=== PATIENT | male | born 1980 | race Caucasian/White ===

== ENCOUNTER 2017-07-06 14:48 | Emergency (ER) | payer OTHER ==
[~2017-07-06] VITALS: Ht 180.3 cm; Wt 99.8 kg
[~2017-07-06 14:48] MED LIST: IBUP-1050 PO
[2017-07-06 15:01] VITALS: TEMP 36.7; Ht 180.3 cm; Wt 99.8 kg
[2017-07-06] MEDS ORDERED: LIDOCAINE/EPINEPH/TETRACAINE 1 EA SYR ONE (15:09)
--- NOTE | 2017-07-06 15:18 | EMERGENCY ROOM VISIT NOTE ---
ED Visit Note First contact with patient: 15:04 CHIEF COMPLAINT: Facial laceration HISTORY OF PRESENT ILLNESS: This 36-year-old male patient presents to the emergency department, ambulatory, complaining of a laceration to the left forehead. The patient was at work at [employer], when he dropped a clutch from a vehicle he was working on, approximately 1 foot onto his forehead. The incident occurred approximately 30 minutes ago. There was no loss of consciousness, vomiting, or unusual behavior afterwards. Denies neck pain. No headache, nausea, or blurred vision. There is moderate bleeding. The patient rates the pain as throbbing and 3/10. The patient's tetanus shot is up to date. REVIEW OF SYSTEMS: A 6 system review of systems was completed with positives and pertinent negatives listed in the HPI. ALLERGIES: None MEDICATIONS: None PMH: None SOCIAL HISTORY: The patient lives locally with family. He is employed by [employer]. He denies drug, alcohol use. He admits to chewing tobacco. PHYSICAL EXAM: Vital Signs: Reviewed Nurse's notes, vital signs stable. GENERAL : This is a 36-year-old white male, in no acute distress, well-developed, well- nourished. NEURO: The patient is alert and oriented to person place and time. No focal neurological defects. EYES: Pupils are round, equal, and react to light. EOMI. EARS: No hemotympanum. NECK: Supple. No cervical spine tenderness. FACE: No facial bone tenderness or mandibular tenderness. The mouth can open fully. The teeth are well aligned. No loose or chipped teeth. SKIN: There is a 2 cm laceration on the left anterior aspect of the forehead. The edges gape apart with traction. There is no active bleeding and no foreign material in the wound. There are no deep structures present. Capillary refill less than two seconds. Normal sensation to light and sharp touch. EMERGENCY DEPARTMENT COURSE: I examined the patient. Verbal consent was obtained to perform the procedure. LET gel was applied to the wound and allowed to sit for approximately 30 minutes. Using sterile technique the wound was cleansed with Betadine. The area was sterilely draped. The wound was copiously irrigated under pressure with sterile saline. The wound was explored and was as described above. The laceration was repaired using 4 simple interrupted 6-0 nylon sutures with the wound edges being well approximated. The patient tolerated the procedure well. Hemostasis was achieved. The area was cleaned with sterile saline and dressed with bacitracin ointment. The patient was discharged home in good condition. Blood Pressure Screening: Patient was found to have a slightly elevated blood pressure due to circumstances. I do not believe that the patient requires hypertension monitoring. I attest that I have personally reviewed the patient's current medication list. DIFFERENTIAL DIAGNOSIS: laceration, contusion, ICH, concussion/closed head injury, and others DIAGNOSIS: Facial laceration Problem List Medical Problems: (1) Dental abscess Status: Resolved Current/Historical Medications No Active Prescriptions or Reported Meds Allergies Coded Allergies: No Known Allergies (Unverified , NONE, 07/06/17) Vital Signs Date Time Temp Pulse Resp B/P (MAP) Pulse Ox O2 Delivery O2 Flow Rate FiO2 07/06/17 15:02 18 07/06/17 15:01 36.7 80 18 160/91 96 Room Air Medications Administered Medications (Trade) Dose Ordered Sig/Meli Route Start Time Stop Time Status Last Admin Dose Admin Tetracaine/ Epinephrine/ Lidocaine (L.e.t. Gel 4%/ 1:100/0.5%) 1 ea STK-MED ONCE .ROUTE 07/06/17 15:09 07/06/17 15:10 DC 07/06/17 15:14 1 EA Departure Information Impression Primary Impression: Facial laceration Dispostion Home / Self-Care Condition GOOD Prescriptions No Active Prescriptions or Reported Meds Referrals No Doctor, Assigned (PCP) Patient Instructions ED Laceration Facial Sutr Tape, [employer] Additional Instructions You have received 4 sutures on your forehead. These sutures are NOT dissolvable and WILL need to be removed by a health care provider in 4-6 days. You can return to the Emergency Department or contact your Primary Care Provider to have the sutures removed. Proper wound care is essential for adequate wound healing and infection prevention. You can shower and clean the wound with soap and water. Do not scour over the wound, pat dry with a towel. Do not submerse the wound (i.e. bathe or dish wash) until the sutures have been removed. You can use an antibiotic ointment with a dressing over the wound for the next 3-4 days. After this time you may leave the wound dry and open to the air. If crust develops over the wound you can use a Q-tip to apply a 1:1 peroxide:water solution to clean the wound. Look for signs of infection of the wound including: increased pain, swelling, foul discharge, streaking, or increased temperature. If any of these are noticed you should return to the Emergency Department for further assessment and treatment. As with any laceration you may have received nerve damage to the surrounding tissues. This damage may or may not be permanent. You should keep the area covered with sunscreen for the first 6 months to 1 year when at risk for exposure to help minimize scarring. You can also use scar reducing creams or Vitamin E oil to help minimize scarring. For pain control, you can use the following nroj-rhi-mdjpird medicines (if >12 yo): Ibuprofen(Motrin, Advil) may be used for fever or pain. Use 600mg every six hours as needed. Take with food. Avoid using more than 2400mg in a 24 hour period. Do not use 2400mg per day for more than three consecutive days without physician direction. Prolonged inappropriate use can lead to stomach upset or ulcers. (AND/OR) Acetaminophen(Tylenol) may be used for fever or pain. Use 1000mg every six hours as needed. Avoid using more than 3000mg in a 24 hour period. Return to the emergency department if your symptoms worsen despite treatment course outlined above. Problem Qualifiers Primary Impression: Facial laceration Encounter type: initial encounter Qualified Codes: S01.81XA - Laceration without foreign body of other part of head, initial encounter
[2017-07-06 16:17] VITALS: BP 137/89; PULSE 71; O2SAT 97
== END 2017-07-06 16:17 | disposition home or self-care (01) ==
LOC: C.EDB 14:49 → C.EDD 16:17
DX: S01.81XA Laceration without foreign body of other part of head, initial encounter (principal); W20.8XXA Other cause of strike by thrown, projected or falling object, initial encounter; Y99.0 Civilian activity done for income or pay; F17.220 Nicotine dependence, chewing tobacco, uncomplicated

== ENCOUNTER 2018-01-18 07:53 | Emergency (ER) | payer OTHER ==
[~2018-01-18] VITALS: Ht 180.3 cm; Wt 100.0 kg
[2018-01-18 07:57] VITALS: TEMP 36.6; Ht 180.3 cm; Wt 100.0 kg
[2018-01-18] MEDS ORDERED: IBUP-1050 PO (08:30)
--- NOTE | 2018-01-18 09:24 | DIAGNOSTIC IMAGING REPORT ---
LEFT SHOULDER 3 VIEWS CLINICAL HISTORY: Left arm pain. FINDINGS: 3 views of the left shoulder are obtained. No prior studies are available for comparison at the time of dictation. The skeletal structures are well mineralized. There is no radiographic evidence of left shoulder fracture or dislocation. 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 The glenohumeral and acromioclavicular joints are preserved. The overlying soft tissues are within normal limits. The imaged left lung parenchyma appears clear. IMPRESSION: No acute osseous abnormality is seen in the left shoulder. Electronically signed by: Abdullahi Arellano M.D. 01/18/2018 9:24 AM Dictated Date/Time: 01/18/2018 9:23 AM
--- NOTE | 2018-01-18 09:25 | DIAGNOSTIC IMAGING REPORT ---
C-SPINE ROUTINE 4 OR 5 VIEWS CLINICAL HISTORY: Cervical pain with left-sided radiculopathy. COMPARISON STUDY: Neck CT December 30, 2011. FINDINGS: There is reversal of the normal cervical lordosis. Vertebral body heights are maintained. No fracture or suspicious lesion is noted. There is mild disc space narrowing and osteophytosis at C5-C6. No new bony neural foraminal narrowing is noted. IMPRESSION: 1. Mild disc space narrowing and osteophytosis at C5-C6. 2. No cervical spine fracture. 3. Reversal of the normal cervical lordosis. Electronically signed by: Carter Bauer M.D. 01/18/2018 9:25 AM Dictated Date/Time: 01/18/2018 9:21 AM
[2018-01-18 09:32] VITALS: BP 145/97; PULSE 67; O2SAT 97
[2018-01-18] MEDS ORDERED: CYCL10TA6 PO (09:41)
[2018-01-18] MEDS ORDERED: METH4PAK PO (09:41)
--- NOTE | 2018-01-18 13:28 | EMERGENCY ROOM VISIT NOTE ---
ED Visit Note First contact with patient: 08:00 Chief Complaint: Left neck and shoulder pain. History of Present Illness: Mr. Christine is a 37-year-old white male who ambulates into the ED complaining of left sided neck, shoulder and upper arm pain. Historically patient denies any previous significant injuries or surgeries. 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 Patient reports Tuesday morning, 4 days ago, he awoke from sleep and reports he had a "kink in his back" located in the mid trapezius area. He reports initially the pain was mild and then gradually increased in intensity. Then 2 days ago the pain moved more into the left anterior lateral shoulder area and became more severe. He describes his pain as a constant deep achy sensation. He rated his discomfort 6/10. He denies radiation of pain but does report that he had a tingling sensation that skipped his forearm and went into his hand. Yesterday he reports he visited a chiropractor for the first time and they report 1 of his cervical vertebrae were rotated and pushing on a nerve. An adjustment of the cervical spine was performed and he reported mild relief of his discomfort. Then last evening his pain returned and became more severe. Currently he is complaining of that deep achy sensation from his anterior shoulder throughout his arm and into the wrist. He rates his discomfort 6/10. His pain worsens minimally with movement and palpation of the anterior shoulder structures. He has not identified any alleviating factors related to the pain. He has been taken ibuprofen, Excedrin and ice without relief of his discomfort. He has had resolution of tingling in the arm. He denies any associated symptoms including headache, dizziness, lightheadedness , neck pain, recent injury, repetitive trauma,, previous significant injuries or surgeries, chest pain, shortness of breath, upper extremity weakness/numbness /tingling. Review of Systems: As noted above in history of present illness. 8 systems were reviewed and found to be negative as noted above. Past Medical History: Patient denies. Current Medications: Patient denies. Allergies to Medications: Patient denies. Social History: Patient is currently employed; he feels safe in his home environment; he admits to tobacco and alcohol use. Physical Examination: Vital Signs: Date Time Temp Pulse Resp B/P (MAP) Pulse Ox O2 Delivery O2 Flow Rate FiO2 01/18/18 09:32 67 18 145/97 97 Room Air 01/18/18 07:57 36.6 81 18 162/106 94 Room Air GENERAL: 37-year-old male in mild distress due to pain, nontoxic-appearing, afebrile and hemodynamically stable. NEUROLOGICAL: Awake, alert and oriented to person, place and time. Answering questions appropriately and following commands. Normal gait. Good hand eye coordination. No focal motor or sensory deficits. SKIN: Warm, dry and pink. No soft tissue eruptions or trauma noted. HEENT: Atraumatic and normocephalic. BACK: No tenderness over the bony cervical spine. No tenderness throughout the paraspinous muscles. No palpable spasm. Full range of motion of the cervical spine. THORAX: Lungs sounds are clear to auscultation and equal bilaterally with symmetrical chest wall. UPPER LEFT EXTREMITY: No gross bony deformity. No tenderness over the bony structures including the clavicle, acromion clavicular joint, scapula, humeral head or humeral neck. No crepitus or deformity. Full range of motion in all movements of the shoulder. 5/5 muscle strength in all movements of the shoulder , elbow, forearm and wrist. All distal neurovascular statuses are intact and equal bilaterally. ED Course: Patient is assessed as noted above. Patient's medication list was reviewed. Cervical Spine X-Rays: Were read by myself and the radiologist showing no acute fractures or dislocations. Radiologist noted mild disc space narrowing and osteophytosis at the C5-C6 level and reversal of normal cervical lordosis. Left Shoulder X-Rays: Were read by myself and the radiologist showing no fractures or dislocations. Radiologist does note a chronic posttraumatic deformity of the left clavicle. Patient was educated about today's findings and instructed on his treatment plan ; he verbalized understanding and agreement with this plan. Clinical Impression: Left shoulder pain. Left-sided neck pain. Decision-Making: Initially my differential diagnosis I considered muscle spasm, muscle strain, overuse syndrome, clavicle fracture, acromion clavicular joint separation, cervical radiculopathy and other causes. Disposition: Patient discharged home in stable condition; prior to departure he was reassessed and subjectively reported he was feeling the same. Plan: Patient was encouraged alternate ibuprofen and acetaminophen every 3 hours as needed for pain. Patient was prescribed a Medrol Dosepak and instructed on its use. Patient was prescribed Flexeril 10 mg every 8 hours for muscle spasm as needed. Patient was encouraged use ice on areas of pain and tenderness 5-6 times a day for 30-45 minutes. Patient was encouraged to follow-up with orthopedics for definitive care and treatment. Patient was encouraged to return to the ED for worsening/flank pain, fevers, right arm weakness or any new/concerning symptoms.
== END 2018-01-18 09:45 | disposition home or self-care (01) ==
LOC: C.EDB 07:54 → C.EDA 09:45
DX: M25.512 Pain in left shoulder (principal); M48.02 Spinal stenosis, cervical region